=== PATIENT | male | born 1965 | race Caucasian/White ===

== ENCOUNTER 2018-03-02 21:39 | Emergency (ER) | payer OTHER ==
[~2018-03-02] VITALS: Ht 170.2 cm; Wt 87.0 kg
[2018-03-02 21:41] VITALS: TEMP 36.4; Ht 170.2 cm; Wt 87.0 kg
[2018-03-02] MEDS ORDERED: SODIUM CHLORIDE 0.9% 1000ML 1,000 ML IV STA (21:55)
[2018-03-02] MEDS ORDERED: KETOROLAC TROMETHAMINE 30 MG/ML VIAL IV STA (21:55)
[2018-03-02] MEDS ORDERED: ONDANSETRON INJ 2 MG/ML 2 ML VIAL IV STA (21:55)
[2018-03-02 22:24] LABS: BASO % 0.3 %; BASO ABS # 0.02 K/uL (0-0.2); EOS % 0.4 %; EOS ABS # 0.03 K/uL (0-0.5); HEMATOCRIT 46.1 % (42-52); HEMOGLOBIN 16.4 g/dL (14.0-18.0); IG# 0.01 K/uL (0.00-0.02); LYMPH ABS # 1.93 K/uL (1.2-3.4); MEAN CELL VOLUME 90.7 fL (80-100); MEAN CORPUSCULAR HEMOGLOBIN 32.3 pg (25-34); MEAN CORPUSCULAR HGB CONC 35.6 g/dl (32-36); MONO % 8.1 %; MONO ABS # 0.56 K/uL (0.11-0.59); NEUT % 63.1 %; NEUT ABS # 4.35 K/uL (1.4-6.5); PLATELET COUNT 213 K/uL (130-400); RED CELL DISTRIBUTION WIDTH CV 12.4 % (11.5-14.5); RED CELL DISTRIBUTION WIDTH SD 41.3 fL (36.4-46.3)
[2018-03-02] MEDS ORDERED: ACETAMINOPHEN IV 100 ML IV STA (22:36)
[2018-03-02 22:43] LABS: ALBUMIN 4.6 gm/dl (3.4-5.0); CALCIUM 9.3 mg/dl (8.5-10.1); CREATININE 1.08 mg/dl (0.60-1.40); POTASSIUM 3.7 mmol/L (3.5-5.1); TOTAL PROTEIN 7.8 gm/dl (6.4-8.2)
--- NOTE | 2018-03-02 23:17 | DIAGNOSTIC IMAGING REPORT ---
ABD/PELVIS WITHOUT FOR STONE HISTORY: 52 years-old Male left flank pain acute left-sided flank pain COMPARISON: None available TECHNIQUE: Multiple axial CT images of the abdomen and pelvis were obtained without the use of IV contrast. A dose lowering technique was used consistent with the principals of DEEPAK. FINDINGS: Minimal pleural calcifications about the left lung base. 4 mm solid nodule of the basal right lower lobe, image 41 series 3. Additional 2 mm solid nodule right lower lobe. Millimeters solid nodule of the lateral segment right middle lobe. 3 mm solid nodule of the inferior segment lingula. No pneumatosis or pneumoperitoneum. Imaged inferior cardiac chambers are unremarkable with coronary arterial calcifications noted. Liver, gallbladder, pancreas and adrenal glands are unremarkable. Exophytic cyst measuring 3.6 x 3.6 cm involves the lateral interpolar right kidney. There are linear parenchymal calcifications of the right kidney just medial to the cyst measuring up to 4 mm. 2 mm nonobstructing calculus of the inferior pole right kidney. Mild left-sided hydroureteronephrosis secondary to a 5 x 4 x 4 mm calculus of the left ureterovesicular junction. Reactive the left perinephric and periureteral inflammatory stranding. The bladder is unremarkable. The prostate appears mildly enlarged. Calcifications are noted about the pelvis. Aorta and IVC appear unremarkable. No bowel obstruction or focal bowel wall thickening. Terminal ileum is unremarkable. Appendix is not definitively seen. No secondary signs of acute appendicitis. No ascites or mesenteric inflammatory changes. Tiny fat filled periumbilical hernia. Pectus excavatum. Bones appear intact. Degenerative changes about the lower lumbar spine. Transitional lumbosacral anatomy. IMPRESSION: 1. Mild left-sided hydroureteronephrosis secondary to a 5 x 4 x 4 mm calculus of the distal left ureter. Additional nonobstructing right nephrolithiasis. 2. No bowel obstruction or focal bowel wall thickening. 3. Multiple pulmonary nodules of the lung bases measure up to 4 mm. 4. Additional findings as above. Please refer to below summary of Fleischner criteria recommendations for follow-up of incidental CT nodules (Yuniel Anaya, Guidelines for management of small pulmonary nodules detected on CT scans: A statement from the Fleischner Society, Radiology 237: [id number].) SOLID NODULES Multiple nodules size: <6 mm * Low risk patients: no routine follow-up * high risk patients: optional CT at 12 months Note: newly detected indeterminate nodule in persons 35 years of age or older. * Low risk patients: minimal or absent history of smoking and/or other known risk factors * high risk patients: history of smoking or of other known risk factors (e.g. first degree relative with lung cancer, or exposure to asbestos, radon, uranium) * if a nodule up to 8 mm is partly solid or is ground glass further follow-up is required after 24 months to exclude possible slow growing adenocarcinoma (CORRINE) The above report was generated using voice recognition software. It may contain grammatical, syntax or spelling errors. Electronically signed by: Jace Grayson M.D. 03/02/2018 11:16 PM Dictated Date/Time: 03/02/2018 11:06 PM
[2018-03-02] MEDS ORDERED: TAMSULOSIN HCL 0.4 MG CAP PO STA (23:45)
[2018-03-02] MEDS ORDERED: OXYCODONE IR HOME PACK PO ONE (23:45)
[2018-03-02] MEDS ORDERED: TAMS0.4C38 PO (23:55)
[2018-03-02] MEDS ORDERED: OXYC-90 PO (23:55)
--- NOTE | 2018-03-02 23:57 | EMERGENCY ROOM VISIT NOTE ---
History First contact with patient: 21:45 Chief Complaint: FLANK PAIN Stated Complaint: TROUBLE/PAIN URINATING History of Present Illness The patient is a 52 year old male who presents to the Emergency Room with complaints of left flank pain, dysuria, and abdominal pain. The patient states 2 weeks ago, he began experiencing some mild difficulty urinating. He also reports urinary frequency, urgency, and dysuria. He states his symptoms have been coming and going, however today the symptoms became much worse, eventually leading to left flank pain. He did take 2 Aleve earlier today without improvement in his symptoms. He denies any history of kidney stones or urinary tract infections. The patient denies any obvious blood in his urine. He denies any recent fever, chest pain, difficulty breathing, or other concerning symptoms. He denies any recent back injury, and states the pain feels different than previous back injuries he has experienced peer he describes the pain as sharp and states it is better with moving around. He rates the pain 10/ 10. Review of Systems A complete 10 point review of systems was reviewed with the patient with pertinent positives and negatives as per history of present illness. All else were negative. Social History Smoking Status: Never Smoker Smokeless Tobacco Use: No Alcohol Use: none Drug Use: none Marital Status: Housing Status: lives with family Occupation Status: employed Current/Historical Medications Scheduled Tamsulosin Hcl (Flomax), 0.4 MG PO QD Scheduled PRN Oxycodone Ir (Roxicodone Ir), 1 TAB PO Q4H PRN for Pain Physical Exam Vital Signs Date Time Temp Pulse Resp B/P (MAP) Pulse Ox O2 Delivery O2 Flow Rate FiO2 03/02/18 23:13 80 18 148/97 100 Room Air 03/02/18 21:41 36.4 86 18 173/110 96 Room Air Physical Exam VITALS: Vitals are noted on the nurse's note and reviewed by myself. Vital signs stable. GENERAL: This is a 52-year-old white male, in no acute distress, nondiaphoretic , well-developed well-nourished. SKIN: The skin was without rashes, erythema, edema, or bruising. There is no tenting of the skin. Capillary reflex less than 2 seconds. HEAD: Normocephalic atraumatic. EARS: External auditory canals clear, tympanic membranes pearly boyce without erythema or effusion bilaterally. EYES: Pupils equal round and reactive to light and accommodation. Conjunctivae without injection, sclerae without icterus. Extraocular movements intact. NOSE: Patent, turbinates without inflammation or discharge. No sinus tenderness. MOUTH: Mucous membranes moist. Tonsils are not enlarged. Pharynx without erythema or exudate. Uvula midline. Airway patent. Tongue does not deviate. NECK: Supple without nuchal rigidity. No lymphadenopathy. No thyromegaly. Cervical spine is nontender. No JVD. HEART: Regular rate and rhythm without murmurs gallops or rubs. LUNGS: Clear to auscultation bilaterally without wheezes, rales or rhonchi. No dullness to percussion. No retractions or accessory muscle use. ABDOMEN: Positive bowel sounds x 4. Normal tympanic percussion. Suprapubic tenderness to palpation. The abdomen was otherwise soft, nontender, without masses or organomegaly. Mckeon sign negative. No guarding or rebound tenderness. Positive CVA tenderness on the left. Negative straight leg raise test. MUSCULOSKELETAL: No muscle atrophy, erythema, or edema noted. Full range of motion without joint tenderness in all extremities. No tenderness to palpation. Normal gait. Strength 5/5 throughout. NEURO: Patient was alert and oriented to person place and time. Normal sensation to light and sharp touch. Deep tendon reflexes 2+ throughout. No focal neurological deficits. Medical Decision & Procedures ER Provider Diagnostic Interpretation: ABD/PELVIS WITHOUT FOR STONE HISTORY: 52 years-old Male left flank pain acute left-sided flank pain COMPARISON: None available TECHNIQUE: Multiple axial CT images of the abdomen and pelvis were obtained without the use of IV contrast. A dose lowering technique was used consistent with the principals of ALARA. FINDINGS: Minimal pleural calcifications about the left lung base. 4 mm solid nodule of the basal right lower lobe, image 41 series 3. Additional 2 mm solid nodule right lower lobe. Millimeters solid nodule of the lateral segment right middle lobe. 3 mm solid nodule of the inferior segment lingula. No pneumatosis or pneumoperitoneum. Imaged inferior cardiac chambers are unremarkable with coronary arterial calcifications noted. Liver, gallbladder, pancreas and adrenal glands are unremarkable. Exophytic cyst measuring 3.6 x 3.6 cm involves the lateral interpolar right kidney. There are linear parenchymal calcifications of the right kidney just medial to the cyst measuring up to 4 mm. 2 mm nonobstructing calculus of the inferior pole right kidney. Mild left-sided hydroureteronephrosis secondary to a 5 x 4 x 4 mm calculus of the left ureterovesicular junction. Reactive the left perinephric and periureteral inflammatory stranding. The bladder is unremarkable. The prostate appears mildly enlarged. Calcifications are noted about the pelvis. Aorta and IVC appear unremarkable. No bowel obstruction or focal bowel wall thickening. Terminal ileum is unremarkable. Appendix is not definitively seen. No secondary signs of acute appendicitis. No ascites or mesenteric inflammatory changes. Tiny fat filled periumbilical hernia. Pectus excavatum. Bones appear intact. Degenerative changes about the lower lumbar spine. Transitional lumbosacral anatomy. IMPRESSION: 1. Mild left-sided hydroureteronephrosis secondary to a 5 x 4 x 4 mm calculus of the distal left ureter. Additional nonobstructing right nephrolithiasis. 2. No bowel obstruction or focal bowel wall thickening. 3. Multiple pulmonary nodules of the lung bases measure up to 4 mm. 4. Additional findings as above. Please refer to below summary of Fleischner criteria recommendations for follow-up of incidental CT nodules (Yuniel Anaya, Guidelines for management of small pulmonary nodules detected on CT scans: A statement from the Fleischner Society, Radiology 237: [id number].) SOLID NODULES Multiple nodules size: <6 mm * Low risk patients: no routine follow-up * high risk patients: optional CT at 12 months Note: newly detected indeterminate nodule in persons 35 years of age or older. * Low risk patients: minimal or absent history of smoking and/or other known risk factors * high risk patients: history of smoking or of other known risk factors (e.g. first degree relative with lung cancer, or exposure to asbestos, radon, uranium) * if a nodule up to 8 mm is partly solid or is ground glass further follow-up is required after 24 months to exclude possible slow growing adenocarcinoma (CORRINE) The above report was generated using voice recognition software. It may contain grammatical, syntax or spelling errors. Electronically signed by: Jace Grayson M.D. 03/02/2018 11:16 PM Dictated Date/Time: 03/02/2018 11:06 PM Laboratory Results 03/02/18 22:09 Red Blood Count 5.08, Mean Corpuscular Volume 90.7, Mean Corpuscular Hemoglobin 32.3, Mean Corpuscular Hemoglobin Concent 35.6, Mean Platelet Volume 11.0, Neutrophils (%) (Auto) 63.1, Lymphocytes (%) (Auto) 28.0, Monocytes (%) (Auto) 8.1, Eosinophils (%) (Auto) 0.4, Basophils (%) (Auto) 0.3, Neutrophils # (Auto) 4.35, Lymphocytes # (Auto) 1.93, Monocytes # (Auto) 0.56, Eosinophils # (Auto) 0.03, Basophils # (Auto) 0.02 03/02/18 22:09 Test 03/02/18 22:09 03/02/18 23:30 White Blood Count 6.90 K/uL (4.8-10.8) Red Blood Count 5.08 M/uL (4.7-6.1) Hemoglobin 16.4 g/dL (14.0-18.0) Hematocrit 46.1 % (42-52) Mean Corpuscular Volume 90.7 fL (80-100) Mean Corpuscular Hemoglobin 32.3 pg (25-34) Mean Corpuscular Hemoglobin Concent 35.6 g/dl (32-36) Platelet Count 213 K/uL (130-400) Mean Platelet Volume 11.0 fL (7.4-10.4) Neutrophils (%) (Auto) 63.1 % Lymphocytes (%) (Auto) 28.0 % Monocytes (%) (Auto) 8.1 % Eosinophils (%) (Auto) 0.4 % Basophils (%) (Auto) 0.3 % Neutrophils # (Auto) 4.35 K/uL (1.4-6.5) Lymphocytes # (Auto) 1.93 K/uL (1.2-3.4) Monocytes # (Auto) 0.56 K/uL (0.11-0.59) Eosinophils # (Auto) 0.03 K/uL (0-0.5) Basophils # (Auto) 0.02 K/uL (0-0.2) RDW Standard Deviation 41.3 fL (36.4-46.3) RDW Coefficient of Variation 12.4 % (11.5-14.5) Immature Granulocyte % (Auto) 0.1 % Immature Granulocyte # (Auto) 0.01 K/uL (0.00-0.02) Anion Gap 10.0 mmol/L (3-11) Est Creatinine Clear Calc Drug Dose 86.2 ml/min Estimated GFR () 92.3 Estimated GFR (Non- 79.6 BUN/Creatinine Ratio 23.1 (10-20) Calcium Level 9.3 mg/dl (8.5-10.1) Total Bilirubin 0.5 mg/dl (0.2-1) Aspartate Amino Transf (AST/SGOT) 21 U/L (15-37) Alanine Aminotransferase (ALT/SGPT) 31 U/L (12-78) Alkaline Phosphatase 73 U/L (45-117) Total Protein 7.8 gm/dl (6.4-8.2) Albumin 4.6 gm/dl (3.4-5.0) Globulin 3.2 gm/dl (2.5-4.0) Albumin/Globulin Ratio 1.4 (0.9-2) Urine Color YELLOW Urine Appearance CLEAR (CLEAR) Urine pH 5.0 (4.5-7.5) Urine Specific [place] 1.025 (1.000-1.030) Urine Protein NEG (NEG) Urine Glucose (UA) NEG (NEG) Urine Ketones TRACE (NEG) Urine Occult Blood 1+ (NEG) Urine Nitrite NEG (NEG) Urine Bilirubin NEG (NEG) Urine Urobilinogen NEG (NEG) Urine Leukocyte Esterase NEG (NEG) Urine WBC (Auto) 1-5 /hpf (0-5) Urine RBC (Auto) 10-30 /hpf (0-4) Urine Hyaline Casts (Auto) 1-5 /lpf (0-5) Urine Epithelial Cells (Auto) 0-5 /lpf (0-5) Urine Bacteria (Auto) NEG (NEG) Medications Administered Medications (Trade) Dose Ordered Sig/Josue Route Start Time Stop Time Status Last Admin Dose Admin Sodium Chloride 1,000 ml @ 999 mls/hr Q1H1M STAT IV 03/02/18 21:55 03/02/18 22:55 DC 03/02/18 21:55 999 MLS/HR Ketorolac Tromethamine (Toradol Inj) 30 mg NOW STAT IV 03/02/18 21:55 03/02/18 21:57 DC 03/02/18 22:23 30 MG Ondansetron HCl (Zofran Inj) 4 mg NOW STAT IV 03/02/18 21:55 03/02/18 21:57 DC 03/02/18 22:21 4 MG Acetaminophen 100 ml @ 400 mls/hr NOW STAT IV 03/02/18 22:36 03/02/18 22:50 DC 03/02/18 22:46 400 MLS/HR ED Course The patient was seen and evaluated as above. IV access obtained, labs drawn. The patient was given 1 L normal saline solution and 30 mg Toradol IV for pain. Imaging performed and reviewed by myself and radiologist as above. The patient reports ongoing pain. He was given acetaminophen. Labs reviewed by myself. I discussed the findings with the patient at bedside, including incidental finding of pulmonary nodules. He was given a dose of Flomax here in the emergency department. He was given home pack for OxyIR. Discharge instructions reviewed, the patient was discharged home in good condition. Medical Decision This is a 52-year-old male patient presents to the emergency department today complaining of left flank, colicky pain in the presence of urinary symptoms as outlined previously. Workup here in the emergency department did not reveal any significant leukocytosis, anemia, thrombus cytopenia. The patient's renal, hepatic function and electrolytes are without abnormality. Urinalysis positive for blood, but no signs of infection. CAT scan does show a 4 x 5 mm stone in the distal left ureter. I suspect this is the cause of the patient's symptoms and pain. Incidentally, there was note of pulmonary nodules as above. I discussed this finding with the patient at bedside and encouraged close follow- up by the primary care provider. The patient will be treated with Flomax, pain medication, and was provided with a urine strainer to collect the stone. I spent a significant amount of time at bedside answering the patient and his significant other's questions. His pain was well managed here in the emergency department. He was encouraged to follow-up closely outpatient with his primary care provider and does have an appointment scheduled for next week already. Etiologies such as renal colic, appendicitis, diverticulitis, mesenteric ischemia, aortic pathology, infections, inflammatory bowel disease, PUD, biliary pathology, UTI, as well as others were entertained. The chart was completed utilizing [employer] voice recognition software. Grammatical errors, random word insertions, pronoun errors, and incomplete sentences are an occasional consequence of this system due to software limitations, ambient noise, and hardware issues. Any formal questions or concerns about the content, text, or information contained within the body of this dictation should be directly addressed to the provider for clarification. Medication Reconcilliation Current Medication List: was personally reviewed by me Blood Pressure Screening Patient's blood pressure: Elevated blood pressure Blood pressure disposition: Elevated BP felt to be situational Impression Primary Impression: Ureteral calculus Additional Impression: Pulmonary nodules Departure Information Dispostion Home / Self-Care Condition GOOD Prescriptions Oxycodone Ir (Roxicodone Ir) 5 Mg Tab 1 TAB PO Q4H Y for Pain, #10 TAB For Initial Treatment Prov: Kaylin Braden PA-C 03/02/18 Tamsulosin Hcl (FLOMAX) 0.4 Mg Cap 0.4 MG PO QD, #7 CAP Prov: Kaylin Braden PA-C 03/02/18 Referrals Pham Yee M.D. (PCP) Dean Patel MD Patient Instructions ED Stone Renal W Coli, [facility] Additional Instructions You have been treated in the Emergency Department today for a Kidney Stone ( Nephrolithiasis). You have been prescribed OxyIR to be used for pain control. This is a narcotic medication. You cannot drive or consume alcohol while on this medicine. This medicine should only be used for pain that cannot be controlled with over-the- counter pain medicines. You have been prescribed Flomax 0.4 mg to be taken ONCE daily. This medicine has been prescribed as it can help relax the smooth muscles of the urinary tract increasing transit time of the kidney stone. For pain control, you can use the following [id number] medicines (if >12 yo): Ibuprofen(Motrin, Advil) may be used for fever or pain. Use 600mg every six hours as needed. Take with food. Avoid using more than 2400mg in a 24 hour period. Do not use 2400mg per day for more than three consecutive days without physician direction. Prolonged inappropriate use can lead to stomach upset or ulcers. (AND/OR) Acetaminophen(Tylenol) may be used for fever or pain. Use 1000mg every six hours as needed. Avoid using more than 3000mg in a 24 hour period. *Alternate these medications every 3-4 hours for increased pain control. You have been provided a strainer and specimen collection cup. You should strain your urine to collect any passed stones. Your stones can be placed into the specimen cup and taken to your Urologist for further evaluation. You have been provided the contact information for the on-call Urologist. Follow-up with the urologist if no improvement in 2-3 days or for worsening symptoms. Follow-up with your primary care provider in 2-3 days for reevaluation of your symptoms. Incidental note of pulmonary nodules noted on CT scan. Follow-up with your PCP regarding ongoing management and monitoring. Return to the Emergency Department if your symptoms persist despite the treatment plan outlined above or if you develop the following symptoms: intractable pain, fever, chills, or large amounts of blood in your urine. Problem Qualifiers
[2018-03-03 00:11] VITALS: BP 148/100; PULSE 90; O2SAT 98
== END 2018-03-03 00:23 | disposition home or self-care (01) ==
LOC: C.EDB 21:41
DX: N20.1 Calculus of ureter (principal); R91.8 Other nonspecific abnormal finding of lung field